=== PATIENT | female | born 1990 | race Caucasian/White ===

== ENCOUNTER 2016-07-04 13:36 | Emergency (ER) | payer SELFPAY ==
--- NOTE | 2016-07-04 14:16 | ER Document Report ---
HPI - HPI Patient complains to provider of: right 4th finger injury Pain Level: 4 Context: 25 yo female c/o pain and swelling to right 4th finger pain. injured with leash while walking dog Associated Symptoms: None Exacerbated by: Movement Relieved by: Denies Similar symptoms previously: No Recently seen / treated by doctor: No - DERM Skin Color: Ecchymosis Past Medical History - General Information source: Patient - Social History Smoking Status: Never Smoker Frequency of alcohol use: None Drug Abuse: None Lives with: Family Family History: Reviewed & Not Pertinent Patient has suicidal ideation: No Patient has homicidal ideation: No Renal/ Medical History: Denies: Hx Peritoneal Dialysis Past Surgical History: Reports: Hx Gynecologic Surgery - - Immunizations Immunizations up to date: Yes Hx Diphtheria, Pertussis, Tetanus Vaccination: Yes Vertical Provider Document - CONSTITUTIONAL Agree With Documented VS: Yes Exam Limitations: No Limitations General Appearance: WD/WN, No Apparent Distress - INFECTION CONTROL TRAVEL OUTSIDE OF THE [place] IN LAST 30 DAYS: No - HEENT HEENT: Atraumatic, PERRLA - NECK Neck: Normal Inspection, Supple - RESPIRATORY Respiratory: Breath Sounds Normal, No Respiratory Distress O2 Sat by Pulse Oximetry: 100 - CARDIOVASCULAR Cardiovascular: Regular Rate, Regular Rhythm - MUSCULOSKELETAL/EXTREMETIES Musculoskeletal/Extremeties: Tender, Edema, Eccymosis - distal right 4th finger - NEURO Level of Consciousness: Awake, Alert, Appropriate - DERM Integumentary: Warm, Dry, No Rash Course - Re-evaluation Re-evalutation: 07/04/16 15:05 xray negative for fracture - Vital Signs Vital signs: Temp Pulse Resp BP Pulse Ox 98.5 F 64 16 118/57 L 100 07/04/16 13:44 07/04/16 13:44 07/04/16 13:44 07/04/16 13:44 07/04/16 13:44 Discharge - Discharge Clinical Impression: Finger sprain Qualifiers: Encounter type: initial encounter Finger: ring finger Sprain of finger site: unspecified site Laterality: right Qualified Code(s): S63.614A - Unspecified sprain of right ring finger, initial encounter Condition: Stable Disposition: HOME, SELF-CARE Instructions: Sprain ([facility]), Ice & Elevation ([facility]), Ibuprofen (General) ([facility]) Prescriptions: Ibuprofen [Motrin 800 Mg Tablet] 800 mg PO Q6H #20 tablet
[2016-07-04 15:14] VITALS: BP 116/59
== END 2016-07-04 15:10 | disposition home or self-care (01) ==
LOC: ER 13:36
DX: S63.614A Unspecified sprain of right ring finger, initial encounter (principal); M79.644 Pain in right finger(s); W23.0XXA Caught, crushed, jammed, or pinched between moving objects, initial encounter; Y93.K1 Activity, walking an animal
CPT/HCPCS: 99283

== ENCOUNTER 2018-06-03 13:22 | Emergency (ER) | payer BC ==
[2018-06-03 13:35] VITALS: BP 108/73
[2018-06-03] MEDS ORDERED: IBUPROFEN 600 MG TABLET PO ONE (14:03)
[2018-06-03] MEDS ORDERED: CYCLOBENZAPRINE HCL 10 MG TABLET PO ONE (14:03)
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
== END 2018-06-03 14:12 | disposition home or self-care (01) ==
LOC: ER 13:22
DX: S16.1XXA Strain of muscle, fascia and tendon at neck level, initial encounter (principal); S09.90XA Unspecified injury of head, initial encounter; V48.6XXA Car passenger injured in noncollision transport accident in traffic accident, initial encounter
CPT/HCPCS: 99283